=== PATIENT | female | born 1930 | race Caucasian/White ===

== ENCOUNTER 2018-12-11 13:30 | Outpatient (CLI) | payer MEDICARE, BC | END 2018-12-11 23:59 | disposition home or self-care (01) | LOC: LAB.R 13:30 | PROVIDERS: ATTEND Podiatrist | DX: L89.892 Pressure ulcer of other site, stage 2 (principal) | CPT/HCPCS: 87070; 87205 ==

== ENCOUNTER 2019-11-30 17:50 | Outpatient (CLI) | payer MEDICARE, BC | END 2019-11-30 23:59 | disposition home or self-care (01) | LOC: LAB.R 17:50 | PROVIDERS: ATTEND Podiatrist | DX: L89.892 Pressure ulcer of other site, stage 2 (principal) | CPT/HCPCS: 87070; 87205 ==